=== PATIENT | male | born 1965 ===

== ENCOUNTER 2019-08-16 05:12 | Day surgery (SDC) | payer OTHER ==
[~2019-08-16 05:12] MED LIST: ATIVAN2 M1 PO; MICROZIDE12.5 MG PO; SIMVASTATIN5 MG PO; SYNTHROID137 MCG PO; TENORMIN25 MG PO; TRAZODONE HCL150 MG PO
== END 2019-08-16 15:00 | disposition home or self-care (01) ==
LOC: CIR.AMB 05:12 → ADM 10:00 → CIR.AMB 15:00
DX: H91.8X2 Other specified hearing loss, left ear (principal)
CPT/HCPCS: 69930; L8614